=== PATIENT | female | born 1990 | race African-American/Black ===

== ENCOUNTER 2025-04-15 11:21 | Emergency (ER) | payer MEDICAID ==
[~2025-04-15] VITALS: Ht 167.6 cm; Wt 105.0 kg
[2025-04-15 11:25] VITALS: O2SAT 99
[2025-04-15] MEDS: ACETAMINOPHEN 500MG TABLET PO ONE (12:43)
[2025-04-15] MEDS: LIDOCAINE 5% PATCH TOP SCH (12:44)
[2025-04-15 13:07] LABS: CLARITY URINE CLEAR (CLEAR); COLOR URINE YELLOW (YELLOW); GLUCOSE URINE NEGATIVE (NEGATIVE); KETONES URINE NEGATIVE (NEGATIVE); LEUKOCYTE ESTERASE URINE 1+ (NEGATIVE); NITRITE URINE NEGATIVE (NEGATIVE); OCCULT BLOOD URINE NEGATIVE (NEGATIVE); PH URINE 6.0 (4.5-8.0); PROTEIN URINE NEGATIVE (NEGATIVE); SPECIFIC GRAVITY URINE 1.018 (1.005-1.030); UROBILINOGEN URINE 0.2 E.U./dL (0.2-1.0)
[2025-04-15 13:25] LABS: SQUAMOUS EPITHELIAL CELL URINE 2+ /lpf (RARE/1+)
[2025-04-15 13:26] LABS: BACTERIA URINE 3+; RBC URINE 0-2 /hpf (0-2); WBC URINE 0-2 /hpf (0-2)
[2025-04-15] MEDS ORDERED: LIDO-53 TP (14:16)
[2025-04-15] MEDS ORDERED: NAPR-681 MT (14:16)
[2025-04-15 14:32] VITALS: BP 131/82; PULSE 84; RESP 16; TEMP 36.7; O2SAT 98
== END 2025-04-15 14:33 | disposition home or self-care (01) ==
LOC: ER 11:21
DX: M25.512 Pain in left shoulder (principal); I10 Essential (primary) hypertension
CPT/HCPCS: 73030; 81003; 81025; 99284